=== PATIENT | male | born 1980 | race American Indian/Alaskan Native ===

== ENCOUNTER 2018-03-11 11:04 | Emergency (ER) | payer MEDICARE ==
[2018-03-11 11:17] VITALS: BP 151/104
[2018-03-11] MEDS ORDERED: TORADOL IM ONE (13:09)
--- NOTE | 2018-03-11 17:53 | Emergency Department Report ---
HPI - General Chief Complaint: Extremity Injury, Lower Time Seen by Provider: 03/11/18 13:09 - HPI HPI: The patient is a 37-year-old male who presents for evaluation of left hip and left foot pain. The patient has a history of gout. The patient reports recurrence of his left great toe pain and left hip pain for the past one day. The patient shares that he fell and injured his left hip. He states that his left hip and left great toe pain or 10/10 in severity, throbbing in quality, exacerbated with movement. ED Past Medical Hx - Past Medical History Additional medical history: gout, morbid obesity - Surgical History Additional Surgical History: right foot - Social History Smoking Status: Current Every Day Smoker Substance Use Type: None - Medications Home Medications: Home Medications Medication Instructions Recorded Confirmed Last Taken Type Indomethacin [Indocin] 25 mg PO Q8H #20 capsule 03/11/18 Unknown Rx Prednisone [predniSONE 10 mg 10 mg PO .TAPER #1 tab.ds.pk 03/11/18 Unknown Rx (6-Day Pack, 21 Tabs)] traMADol [Ultram 50 MG tab] 50 mg PO Q6HR PRN #15 tablet 03/11/18 Unknown Rx ED Review of Systems ROS: Stated complaint: LEFT HIP/ANKLE PAIN Other details as noted in HPI Constitutional: denies: fever ENT: denies: throat or neck pain Respiratory: denies: cough, shortness of breath Cardiovascular: denies: chest pain Endocrine: denies unexplained weight loss or gain Gastrointestinal: denies: abdominal pain, nausea Genitourinary: denies: dysuria Musculoskeletal: reports left hip and left great toe pain denies: leg swelling Skin: denies: rash Neurological: denies: headache Hematological/Lymphatic: denies: easy bleeding or easy bruising Psych: denies sadness or hopelessness Physical Exam - Physical Exam Vital Signs: Vital Signs 03/11/18 11:15 Temperature 98.7 F Pulse Rate 95 H Respiratory 18 Rate Blood Pressure 151/104 O2 Sat by Pulse 98 Oximetry Physical Exam: General: well-nourished, well-developed, no acute distress Head: Normocephalic, atraumatic Eyes: normal sclera ENT: Mucous membranes are pink and moist Neck: trachea midline, neck supple, No neck stiffness, no cervical adenopathy Respiratory: Breath sounds equal bilaterally, no wheezing, rales, or rhonchi Cardio: S1 and S2 present, no murmurs, rubs, gallops, capillary refill is brisk Abdomen: Normoactive bowel sounds, soft abdomen, no tenderness Chest WALL/Back: No tenderness to palpation of the chest wall, no CVA tenderness with percussion Musc: Tenderness to palpation presents to the lateral aspect of the left hip, passive active range of motion of the left hip intact, sensation, motor function , pulses intact in the lower leg or foot distal to the hip area. Patient also has tenderness to palpation of the medial left great toe, there is no redness, swelling, fluctuance, or crepitus to the left great toe joint Skin: No rash Neuro: no facial drooping, normal speech Psych: Normal affect ED Course Vital Signs 03/11/18 11:15 Temperature 98.7 F Pulse Rate 95 H Respiratory 18 Rate Blood Pressure 151/104 O2 Sat by Pulse 98 Oximetry ED Medical Decision Making - Medical Decision Making The patient was seen and examined by myself. The patient is placed on a duty officer and continuous pulse ox. On initial evaluation, the patient was found to be in no distress. No findings on exam concerning for hip dislocation or fracture as the patient is able to bear weight, and has no sensation or motor deficits deficits, and no findings concerning for emergent etiology of his pain, imaging will not be obtained at this time. The patient is given pain medicine. The patient was reevaluated and reported that their pain significantly improved. The patient is able to ambulate in the [place] without any abnormal gait. The patient is stable for discharge with outpatient follow- up. The patient is given follow-up and return instructions and a prescription for steroids and pain medicine. The patient expressed understanding and agreed with the plan. The patient is discharged in stable condition. Critical care attestation.: If time is entered above; I have spent that time in minutes in the direct care of this critically ill patient, excluding procedure time. ED Disposition Clinical Impression: Acute pain of left hip, Acute pain of left foot Disposition: TO HOME OR SELFCARE Is pt being admited?: No Does the pt Need Aspirin: No Condition: Stable Instructions: Acute Gouty Arthritis (ED), Arthralgia (ED) Prescriptions: Indomethacin [Indocin] 25 mg PO Q8H #20 capsule Prednisone [predniSONE 10 mg (6-Day Pack, 21 Tabs)] 10 mg PO .TAPER #1 tab.ds.pk traMADol [Ultram 50 MG tab] 50 mg PO Q6HR PRN #15 tablet PRN Reason: Pain Referrals: [facility] [Outside] - 3-5 Days Forms: Work/School Release Form(ED) Time of Disposition: 13:26
== END 2018-03-11 14:12 | disposition home or self-care (01) ==
LOC: EDSEX → ED 11:04
DX: M25.552 Pain in left hip (principal); M79.672 Pain in left foot; F17.200 Nicotine dependence, unspecified, uncomplicated; M10.9 Gout, unspecified
CPT/HCPCS: 96372; 99282; J1885